=== PATIENT | male | born 2000 | race Asian ===

== ENCOUNTER 2025-08-21 17:52 | Emergency (ER) | payer OTHER, SELFPAY ==
[2025-08-21 18:27] VITALS: BP 141/65; PULSE 64; RESP 17; TEMP 37; O2SAT 99; BMI 28.2
--- NOTE | 2025-08-22 14:14 | ED.NAVMDI ---
HPI - Nausea/Vomiting/Diarrhea <Laura Muller PA-C - Last Filed: 08/22/25 14:20> General Chief complaint: Nausea/Vomiting/Diarrhea Stated complaint: vomit, diarrhea, x24hrs Time Seen by Provider: 08/21/25 19:12 Source: patient Mode of arrival: Ambulatory History of Present Illness HPI Narrative: 25-year-old male presents to the ED with 2 days of nausea, diarrhea, vomiting and subjective fever. Patient has been taking Zofran at home, nausea is well controlled and is able to keep down fluids. Patient took some Pepto and Imodium for diarrhea. No fever, chills, chest pain, shortness of breath, abdominal pain, dysuria, lightheadedness, dizziness, syncope. Related Data Allergies Allergy/AdvReac Type Severity Reaction Status Date / Time No Known Drug Allergies Allergy Verified 08/21/25 18:27 Review of Systems <Laura Muller PA-C - Last Filed: 08/22/25 14:20> Constitutional Constitutional: Denies chills, Denies fatigue, Reports fever(s), Denies frequent falls, Denies lethargy and Denies weakness Eyes Eyes: Denies change in vision, Denies eye discharge, Denies irritation and Denies loss of vision ENT Ears, Nose, Mouth, and Throat: Denies change in voice, Denies dizziness, Denies neck pain, Denies sore throat and Denies throat swelling Cardiovascular Cardiovascular: Denies chest pain, Denies irregular heart rhythm, Denies lightheadedness, Denies palpitations, Denies dyspnea, Denies dyspnea on exertion and Denies orthopnea Respiratory Respiratory: Denies cough, Denies dyspnea, Denies dyspnea on exertion and Denies wheezing Gastrointestinal Gastrointestinal: Denies abdominal pain, Denies change in bowel habits, Reports diarrhea, Reports nausea and Reports vomiting Musculoskeletal Musculoskeletal: Denies neck pain and Denies numbness Integumentary/Breasts Skin/Breast: Denies pruritus, Denies erythema, Denies rash and Denies wounds Neurologic Neurologic: Denies behavioral changes, Denies confusion, Denies dizziness, Denies frequent falls, Denies loss of vision, Denies numbness and Denies weakness Psychiatric Psychiatric: Denies anxiety, Denies behavioral changes, Denies confusion, Denies depression, Denies homicidal ideation and Denies suicidal ideation Endocrine Endocrine: Denies fatigue, Denies flushing and Denies palpitations Hematologic/Lymphatic Hematologic/Lymphatic: Denies easy bruising Allergic/Immunologic Allergic/Immunologic: Denies urticaria, Denies throat swelling and Denies wheezing Patient History <Laura Muller PA-C - Last Filed: 08/22/25 14:20> Social History Smoking Status: Never smoker Smoking Status: Never smoker Exam <Laura Muller PA-C - Last Filed: 08/22/25 14:20> Narrative Exam Narrative: Const General:?cooperative, healthy appearing and comfortable HENMT Head:?normal to inspection Ears:?hearing grossly normal bilaterally Nose:?external nose normal Face and sinus:?normal facial exam and sinuses nontender Mouth:?oral mucosae normal Throat:?posterior oropharynx normal Eyes General:?appearance normal, both eyes and all related structures Neck Neck:?normal visual inspection and no lymphadenopathy noted Resp Effort & Inspection:?normal respiratory effort Auscultation:?clear to auscultation bilaterally Cardio Rate:?regular rate Rhythm:?regular rhythm GI Abdomen is soft, nondistended, nontender to palpation. Neuro General:?patient alert, patient awake and patient oriented x3 Initial Vital Signs Initial Vital Signs: Vital Signs Temperature 98.6 F 08/21/25 18:27 Pulse Rate 64 08/21/25 18:27 Respiratory Rate 17 08/21/25 18:27 Blood Pressure 141/65 H 08/21/25 18:27 Pulse Oximetry 99 08/21/25 18:27 Oxygen Delivery Method Room Air 08/21/25 18:27 <Germán Charlton MD - Last Filed: 08/22/25 22:29> Initial Vital Signs Initial Vital Signs: Vital Signs Temperature 98.6 F 08/21/25 18:27 Pulse Rate 64 08/21/25 18:27 Respiratory Rate 17 08/21/25 18:27 Blood Pressure 141/65 H 08/21/25 18:27 Pulse Oximetry 99 08/21/25 18:27 Oxygen Delivery Method Room Air 08/21/25 18:27 MDM - Nausea/Vomiting/Diarrhea <Laura Muller PA-C - Last Filed: 08/22/25 14:20> MDM Narrative Medical decision making narrative: 25-year-old male presents to the ED with 2 days of nausea, diarrhea, vomiting and subjective fever. Patient's symptoms consistent with gastroenteritis. It is reassuring to note that patient is able to keep down fluids. Abdominal exam is benign. Patient was p.o. challenged, was able to keep down fluids. Recommend continuing Zofran as needed. Recommend Imodium until diarrhea stops. Recommend good hydration, BRAT diet. ED return precautions discussed with patient. Patient verbalized understanding. Medical records reviewed: Yes <Germán Charlton MD - Last Filed: 08/22/25 22:29> [facility] Narrative Medical decision making narrative: 25-year-old male presents to the ED with 2 days of nausea, diarrhea, vomiting and subjective fever. Patient's symptoms consistent with gastroenteritis. It is reassuring to note that patient is able to keep down fluids. Abdominal exam is benign. Patient was p.o. challenged, was able to keep down fluids. Recommend continuing Zofran as needed. Recommend Imodium until diarrhea stops. Recommend good hydration, BRAT diet. ED return precautions discussed with patient. Patient verbalized understanding. Medical records reviewed: Yes I was available for consultation during this patient's visit but was not involved in the care. Discharge Plan Departure Patient Disposition: Home Clinical Impression: Gastroenteritis Instructions: DI for Viral Gastroenteritis -- Adult Activity Restrictions/Additional Instructions: You were evaluated in the emergency department today for nausea, vomiting, diarrhea. It is reassuring that your symptoms have improved with ondansetron and Immodium. Were able to hold down water and food. You may continue taking on an ondansetron as needed for the nausea. You may also continue taking the Imodium per package instructions until the diarrhea stops. It is common with gastroenteritis to have about 24 hours of nausea and vomiting, followed by a few days of diarrhea. It is most important to keep well hydrated. You may also consume the BRAT diet which consists of bananas, rice, apples, toast. This will help stem the diarrhea. Please follow-up with your PCP as soon as possible. Return to the ED if your symptoms worsen, you were unable to keep in any solids or liquids. Stand Alone Forms: Patient Portal/API
== END 2025-08-21 19:24 | disposition home or self-care (01) ==
PROVIDERS: Emergency Provider Student in an Organized Health Care Education/Training Program
DX: K52.9 Noninfective gastroenteritis and colitis, unspecified (principal)
CPT/HCPCS: 99281